=== PATIENT | male | born 1995 | race Caucasian/White ===

== ENCOUNTER 2019-08-28 08:44 | Outpatient (CLI) | payer OTHER ==
--- NOTE | 2019-08-28 09:36 | SLEEP CARE CONSULTATION ---
Information from patient questionnaire entered by Breanne Hernandez. I have reviewed and concur with the information entered by Breanne Hernandez. This document represents the service I personally performed and the decisions made by me, Pema Willis ARNP. History of Present Illness Service Date and Time: 08/28/2019 0844 Reason for Visit: New patient Chief Complaint: reports: Insomnia, Unrefreshed sleep, Snoring, Excessive daytime sleepiness, Observed pauses in breathing, Frequent awakenings at night. denies: Fatigue, Other Duration of Symptoms: 4 years Usual bedtime: 9-10 pm Time it takes to fall asleep: pretty quick Snores at night: Yes Observed to quit breathing while asleep: Yes Sleeps alone due to snoring: Yes Number of times waking at night: 5-6 Reasons for waking at night: reports: Snoring (sometimes), Gasping for air (sometimes). denies: Choking, Bathroom, Other Toss, Turn, or Twitch while sleeping: Yes Recalls having dreams: Yes Usually gets out of bed at: 5:30 am Feels refreshed in the morning: No Morning headache: No Sleepy or fatigued during the day: Yes Ever fallen asleep while driving: No Takes day naps: Yes Dreams during day naps: Yes Prior sleep studies: No Additional HPI information: Patient sleeps mostly on his stomach or side because he has more episode of wake-paralysis when he sleeps on his back during daytime naps - Parasomnia Symptoms Ever been unable to move upon waking from sleep: Yes Walks in sleep: No Talks in sleep: Yes (as child) Ever acted out dreams in sleep: No Ever felt weak in the knees when startled or emotional: Yes Bothered by creepy, crawly, restless sensations in legs: No Problems with memory or concentration: Yes (forget simple words and names of people intermittently) Subjective Initial [place] Sleepiness Scale score: 13 (in 2019) Past Medical History Past Medical History: reports: Impotence, Other (ED, acid reflux that is diet controlled). 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 Patient is Single and lives in [place]. Have you smoked in the past 12 months: No Alcohol use: Yes Alcohol amount and frequency: 2 drinks every other day Caffeine use: Yes Caffeine amount and frequency: 2 cups of coffee Family History Family history of sleep disordered breathing: Yes (Father) Family Hx Sleep Apnea: Father: Snoring, Sleep apnea - Treated Allergies and Home Medications Drug allergies reviewed: Yes (NKDA) Home medication list reviewed: Yes (Viagra) Review of Systems Gastrointestinal: reports: heartburn Ear/Nose/Throat: reports: injury to nose Endocrine: reports: sluggishness, too hot or cold Physical Exam Heart Rate: 78 O2 Saturation: 99 Height: 5 ft 8 in Weight: 202 lb 9.6 oz Body Mass Index: 30.8 BMI Classification: Obese Neck circumference: 17.25 Nasal exam: negative: erythema, excoriation, scabs, blood tinged nasal secretions, other HEENT: No craniofacial malformation Nostrils: patent to airflow Turbinates: normal Septum: midline Mouth and throat: normal Uvula visualization: 25% Mallampati Class III Tongue: normal in size Tonsils: 1+ Chin and jaw: normal size and position Neck: normal w/o lymphadenopathy or thyromegaly Heart: regular rate and rhythm Lungs: clear bilaterally Impression and Plan Patient presents with excessive daytime sleepiness, unrefreshed sleep and observed cessation of breath while sleeping. He states he has times when he wake up from a nap intermittently with an inability to move but this resolves quickly or he goes back to sleep. His father snores and uses CPAP. 1. Suspected Obstructive Sleep Apnea-Hypopnea Syndrome, as suggested by a history of loud and irregular snoring, observed cessation of breath while asleep, gasping or choking in sleep, frequent awakening during the night, unrefreshed sleep, cognitive impairment, and excessive daytime sleepiness. Obesity is a common predisposing factor for obstructive sleep apnea-hypopnea syndrome. I recommend proceeding to polysomnography to confirm the diagnosis and to assess severity. If the patient has significant sleep disordered breathing. I informed the patient of what the sleep studies involve and after some discussion, obtained agreement to proceed. The pathophysiology of obstructive sleep apnea- hypopnea syndrome was discussed with the patient and health risks of cardiovascular and cerebrovascular disease if not treated. Risks of drowsy driving discussed in detail and patient advised to avoid long distance driving and to head well puller at the first sign of drowsiness. Patient agreed to plan. * Schedule polysomnography and return in 1-2 weeks after the study to discuss result and initiate therapy. * Avoid long distance driving or driving when feeling sleepy. * Avoid alcohol, sedative and muscle relaxant around bedtime. * Attempt to lose weight. * Review instructions provided by trained office staff on how to prepare for the sleep study. * Return for follow-up after sleep study completed.
== END 2019-08-28 08:45 | disposition home or self-care (01) ==
LOC: SC 08:44
PROVIDERS: ATTEND Nurse Practitioner Family
DX: R06.83 Snoring (principal); R06.81 Apnea, not elsewhere classified; G47.10 Hypersomnia, unspecified; G47.8 Other sleep disorders; E66.9 Obesity, unspecified; Z68.30 Body mass index [BMI] 30.0-30.9, adult
CPT/HCPCS: 99204; 99212

== ENCOUNTER 2019-11-15 12:58 | Outpatient (CLI) | payer OTHER ==
[2019-11-15 13:46] VITALS: BP 120/68
--- NOTE | 2019-11-15 13:46 | SLEEP CARE CONSULTATION ---
Information from patient questionnaire entered by Breanne Hernandez. I have reviewed and concur with the information entered by Breanne Hernandez. This document represents the service I personally performed and the decisions made by me, Michelle Maddox, RN, MSN, PIE FILLER. History of Present Illness Service Date and Time: 11/15/2019 1258 Previous diagnosis: Mild, Obstructive Sleep Apnea-Hypopnea Syndrome AHI: 13.4 (in 2019) Reason for follow up: first compliance Equipment type: CPAP Equipment obtained from: [employer] (no new supplies since set up) Mask style: Nasal (Wisp Dream) Backup mask available: No (keep current mask as spare ) Last cushion change: no change Prior sleep studies: Yes Year and Where: 2019 [facility] Type of Sleep Study: Polysomnography Sleep Study - Results Prior sleep studies: No CPAP Compliance Data - Data Reviewed with Patient Average duration of nightly device use: 1.95 Compliance rate %: 3 Current pressure setting (cmH2O): 4-15 Average residual AHI: 4.8 (95Th% pressure 8.7cmH20/ median 5.7cmH20. ) Central apnea: 0.2 Obstructive apnea: 2.7 Hypopnea: 1.8 unknown Subjective Missed days of use due to: reports: travel (forgot to take on travel ) Patient concerns: reports: condensation in mask/hose. denies: aerophagia, mask discomfort, air blowing in eyes, mask leak noise, nasal congestion, dry mouth, nose, throat (resolved with turning off auto and increased heat 80% and reduced humidity to 2), epistaxis, other (pressure to high) Current pressure setting perceived as: too high (wakes to pressure too high about 2 hours into sleep so takes off mask.) On therapy, patient: reports: awakening more refreshed. denies: drowsiness while driving Initial [place] Sleepiness Scale score: 13 (in 2019) Current [place] Sleepiness Scale score: 4 Allergies and Home Medications Known drug allergies: No Home medication list reviewed: No (no meds ) Review of Systems Review of systems same as previous: Yes Physical Exam Blood Pressure: 120/68 Cuff size: long Heart Rate: 70 O2 Saturation: 98 Height: 5 ft 8 in Weight: 207 lb 12.8 oz Body Mass Index: 31.6 BMI Classification: Obese Impression and Plan 1. Obstructive Sleep Apnea-Hypopnea Syndrome, mild , with poor treatment compliance and good apnea control. On CPAP therapy, the patient has noted more refreshed sleep from what little CPAP he can use. He is waking to the pressure to feeling too high and unable to tolerate so takes off the mask. For comfort of air, I will reduce his autoCPAP pressure to 4-7cmH20. If this change is ineffective or uncomfortable in any way contact me. In addition, until then he can turn the CPAP off and restart to start at a lower pressure so he can sleep again as the higher pressure is waking him. He is advised to use CPAP with all sleep for maximum benefit of treatment. 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 He generally gets 5-6 hours of sleep. Most people require 7-9 hours of sleep for optimal mental and physical function. Less than 5-6 hours of sleep consistently can contribute to health risks and mortality. Thus patient is advised to strive for a minimum of 7 hours of sleep. Methods discussed on how patient can achieve within their lifestyle. Shift work pamphlet given and reviewed. Fortunately patient will separate from [employer] schedule in January. Supplies reviewed and rationale to change. To reduce forgetting to take CPAP when leaves for travel, he is advised to set his car keys on his CPAP. Patient's apnea severity and rationale for treatment to reduce apnea, improve sleep quality and reduce cardiovascular and cerebrovascular events was reviewed. * * Change[auto] CPAP pressure to 4-7 cmH2O * Implement methods to increase sleep length as discussed. * Notify me if snoring with mask or feeling that the pressure is too much or too little * Attempt to lose weight * Call this office if any problems using CPAP * Return for follow up in 1 month , or sooner if concerns arise Visit Type: In Office Time Spent with Patient (minutes): 30 Provider Statement: I spent 100% of the Face to Face Visit with the patient with greater than 50% spent counseling the patient and coordination of care.
== END 2019-11-15 12:59 | disposition home or self-care (01) ==
LOC: SC 12:58
PROVIDERS: ATTEND Nurse Practitioner Family
DX: G47.33 Obstructive sleep apnea (adult) (pediatric) (principal); E66.9 Obesity, unspecified; Z68.31 Body mass index [BMI] 31.0-31.9, adult
CPT/HCPCS: 99212; 99214

== ENCOUNTER 2019-12-13 17:19 | Outpatient (CLI) | payer OTHER ==
--- NOTE | 2019-12-13 17:14 | SLEEP CARE CONSULTATION ---
Information from patient questionnaire entered by Marlene Barrientos. I have reviewed and concur with the information entered by Marlene Barrientos. This document represents the service I personally performed and the decisions made by me, Pema Willis ARNP. History of Present Illness Service Date and Time: 12/13/20191718 Previous diagnosis: Mild, Obstructive Sleep Apnea-Hypopnea Syndrome AHI: 13.4 Reason for follow up: one month (with pressure change) Equipment type: CPAP Equipment obtained from: [employer] (just initial supplies so far) Mask style: Nasal Backup mask available: Yes (one extra) Last cushion change: over a months [facility]: Yes [facility] Type of Sleep Study: Polysomnography HPI additional information: MAR MITCHELL was diagnosed to have mild, AHI 13.4, obstructive sleep apnea-hypopnea syndrome and returns via Telehealth video today for CPAP therapy pressure change follow-up. Sleep Study - Results Type of Sleep Study: Polysomnography Prior sleep studies: No [facility] CPAP Compliance Data - Data Reviewed with Patient Average duration of nightly device use: 4 hours 8 minutes Compliance rate %: 47 Current pressure setting (cmH2O): 4-7 Average residual AHI: 2.9 Central apnea: 0.3 Obstructive apnea: 2.5 Average large leak: 9.9 L/min Subjective Missed days of use due to: reports: travel (camping trip), other (works 24 hour shifts 1-2 times a week) Patient concerns: denies: aerophagia, mask discomfort, air blowing in eyes, mask leak noise, condensation in mask/hose, nasal congestion, dry mouth, nose, throat, epistaxis, other Observed to snore while using device: No Current pressure setting perceived as: comfortable On therapy, patient: reports: sleeping better, awakening more refreshed, being more awake and alert during the day, more rested overall. denies: drowsiness while driving Initial [place] Sleepiness Scale score: 13 Allergies and Home Medications Drug allergies reviewed: Yes (NKDA) Home medication list reviewed: Yes (no changes) Review of Systems Review of systems same as previous: Yes (no changes) Physical Exam Vital signs obtained and entered by: Telehealth visit, no vitals obtained Height: 5 ft 8 in Impression and Plan 1. Obstructive Sleep Apnea-Hypopnea Syndrome, mild, with poor treatment c ompliance and good apnea control. On CPAP therapy, the patient has better sleep quality and is more rested overall. Patient does try to use the CPAP machine every night/day that he sleeps but he does not always get more than 4-6 hours of sleep. He also works 24 hour shifts where he does not sleep for a night. He also went on a camping trip and did not take his CPAP machine. These reflect in his 47% compliance for the last 30 days. I encouraged him to try to increase CPAP use on the nights he does sleep to at least 7 hours to bring up his compliance use. He may also put on for any napping he may due during the day. He voiced understanding and agreement with plan. He is doing well on the current pressure, so we will not make any changes. He will need to follow up in another month to review his compliance. Patient's apnea severity and rationale for treatment to reduce apnea, improve sleep quality and reduce cardiovascular and cerebrovascular events was reviewed. I also reviewed the benefit of consistent device use of CPAP for gastric reflux. * Continue auto CPAP pressure at 4-7 cmH2O * Notify me if snoring with mask or feeling that the pressure is too much or too little * Attempt to lose weight * Call this office if any problems using CPAP * Return for follow up in 1-2 months, or sooner if concerns arise Counseling Topics: Spare mask Visit Type: Telehealth Video Video Type: Doximity Patient Location: Home Location of Provider: Home Patient agrees and consents to this telehealth visit type: Yes Patient agrees to have their insurance billed: Yes Time Spent with Patient (minutes): 17 Provider Statement: I spent 100% of the Telehealth Video Call with the patient with greater than 50% spent counseling the patient and coordination of care.
== END 2019-12-13 17:20 | disposition home or self-care (01) ==
LOC: SC 17:19
PROVIDERS: ATTEND Nurse Practitioner Family
DX: G47.33 Obstructive sleep apnea (adult) (pediatric) (principal)

== ENCOUNTER 2020-01-09 12:50 | Outpatient (CLI) | payer OTHER ==
--- NOTE | 2020-01-09 13:26 | SLEEP CARE CONSULTATION ---
Information from patient questionnaire entered by Jhonatan Wong. I have reviewed and concur with the information entered by Jhonatan Wong. This document represents the service I personally performed and the decisions made by , Pema Willis ARNP. History of Present Illness Service Date and Time: 01/09/2020 1250 Previous diagnosis: Mild, Obstructive Sleep Apnea-Hypopnea Syndrome AHI: 13.4 Reason for follow up: one month (followup) Equipment type: CPAP Equipment obtained from: [employer] (just initial supplies so far) Mask style: Nasal (wisp type) Backup mask available: No (will keep mask once replaced) Last cushion change: 1 month Prior sleep studies: No Year and Where: 2019 - [facility] Type of Sleep Study: Polysomnography HPI additional information: MAR MITCHELL was diagnosed to have mild, AHI 13.4, obstructive sleep apnea-hypopnea syndrome and returned today for CPAP therapy one month follow-up. Sleep Study - Results Type of Sleep Study: Polysomnography Prior sleep studies: No Year and Where: 2019 - [facility] CPAP Compliance Data - Data Reviewed with Patient Average duration of nightly device use: 4 h 28 min Compliance rate %: 73 Current pressure setting (cmH2O): 4-7 Average residual AHI: 5.2 Central apnea: 0.2 Obstructive apnea: 4.9 Subjective Missed days of use due to: reports: other (work) Patient concerns: denies: aerophagia, mask discomfort, air blowing in eyes, mask leak noise, condensation in mask/hose, nasal congestion, dry mouth, nose, throat, epistaxis, other Observed to snore while using device: No Current pressure setting perceived as: comfortable On therapy, patient: reports: sleeping better, awakening more refreshed, being more awake and alert during the day, more rested overall. denies: drowsiness while driving Initial [place] Sleepiness Scale score: 13 (in 2019) Current [place] Sleepiness Scale score: 3 Allergies and Home Medications Drug allergies reviewed: Yes (NKDA) Home medication list reviewed: Yes (no changes) Review of Systems Review of systems same as previous: Yes (no changes) Physical Exam Heart Rate: 83 O2 Saturation: 98 Height: 5 ft 8 in Weight: 214 lb Body Mass Index: 32.5 BMI Classification: Obese Impression and Plan 1. Obstructive Sleep Apnea-Hypopnea Syndrome, mild, with fair treatment compliance and fair apnea control with slight elevation of residual AHI. On CPAP therapy, the patient has better sleep quality and is more rested overall. The patients pressure will be changed to autoCPAP 5-8 cmH20 for elevation of residual AHI. Patient advised to contact me if pressure change is uncomfortable so that it can be adjusted. Goals for apnea control discussed. Patient's apnea severity and rationale for treatment to reduce apnea, improve sleep quality and reduce cardiovascular and cerebrovascular events was reviewed. * Changeauto CPAP pressure to 5-8 cmH2O * Notify me if snoring with mask or feeling that the pressure is too much or too little * Call this office if any problems using CPAP * Return for follow up in 3 months, or sooner if concerns arise Counseling Topics: Spare mask Visit Type: In Office Time Spent with Patient (minutes): 15 Provider Statement: I spent 100% of the Face to Face Visit with the patient with greater than 50% spent counseling the patient and coordination of care.
== END 2020-01-09 12:51 | disposition home or self-care (01) ==
LOC: SC 12:50
PROVIDERS: ATTEND Nurse Practitioner Family
DX: G47.33 Obstructive sleep apnea (adult) (pediatric) (principal); E66.9 Obesity, unspecified; Z68.32 Body mass index [BMI] 32.0-32.9, adult
CPT/HCPCS: 99212; 99213